=== PATIENT | female | born 1955 | race Caucasian/White ===

== ENCOUNTER 2016-07-16 23:43 | Emergency (ER) | payer OTHER ==
[~2016-07-16] VITALS: Ht 170.2 cm; Wt 80.0 kg
[2016-07-17] MEDS ORDERED: MORPHINE SULFATE 10 MG/ML CPJ IV ONE (04:15)
[2016-07-17 08:31] VITALS: BP 147/90
[2016-07-17] MEDS: MORPHINE SULFATE 4 MG/ML CPJ (NOT FOR IM USE) IV SCH (08:31)
== END 2016-07-17 09:36 | disposition home or self-care (01) ==
LOC: ER 23:45 → EDBD 23:45 → ER 07-17 09:36
DX: S16.1XXA Strain of muscle, fascia and tendon at neck level, initial encounter (principal); S20.219A Contusion of unspecified front wall of thorax, initial encounter; T14.8 Other injury of unspecified body region; M25.552 Pain in left hip; M25.551 Pain in right hip; V49.49XA Driver injured in collision with other motor vehicles in traffic accident, initial encounter; Y93.89 Activity, other specified; Y92.410 Unspecified street and highway as the place of occurrence of the external cause; M48.02 Spinal stenosis, cervical region; Z88.0 Allergy status to penicillin
CPT/HCPCS: 71010; 72125; 73522; 96374; 96376; 99284; J2270